=== PATIENT | male | born 1975 | race Two or more races ===

== ENCOUNTER 2018-04-26 15:27 | Emergency (ER) | payer SELFPAY ==
[~2018-04-26] VITALS: Ht 157.5 cm; Wt 79.4 kg
--- NOTE | 2018-04-26 15:47 | NUR ---
ED Nurse Note: Pt came into the Er due to laceration on the rt forearm. Pt is complaining of 8/10 pain at the site. Non radiating. Pt is A + O x4. Ambulatory. Skin warm to touch. Pt's rt arm is wrapped in cloth at the moment.
[2018-04-26 15:48] VITALS: BP 133/77
[2018-04-26] MEDS ORDERED: Tetanus/Diptheria/Pertussis Vaccine 0.5ml Syr IM ONE (16:00)
[2018-04-26] MEDS ORDERED: Lidocaine 1% 10mg/ml/Epi 0.005mg/ml 30ml vial INJ ONE (16:15)
[2018-04-26] MEDS ORDERED: Bacitracin Oint UD TOPIC ONE (16:15)
[2018-04-26] MEDS ORDERED: BACITRACIN-P28.35 GM TP (16:58)
[2018-04-26] MEDS ORDERED: CEPHALEXIN500 MG ORAL (16:58)
[2018-04-26 17:27] VITALS: BP 130/77
--- NOTE | 2018-04-26 17:29 | NUR ---
ER DISCHARGE NOTE: Patient is cleared to be discharged per ERMD, pt is aox4, on room air, with stable vital signs. pt was given dc and prescription instructions, pt was able to verbalize understanding, pt id band removed without complications. pt is able to ambulate with steady gait. pt took all belongings. Laceration site cleansed, sutured, and wrapped in kerlix.
--- NOTE | 2018-04-26 22:37 | Emergency Room Report ---
History of Present Illness General Chief Complaint: Laceration Source: Patient Present Illness HPI 42-year-old male presents to the emergency department complaining of localized laceration to the right forearm that he states he sustained from a piece of metal. Patient reports 10 out of 10 in severity pain is exacerbated upon palpation. Patient reports that he continues to have some bleeding he denies taking blood thinning medication he states he is not sure when his last tetanus vaccination was picking nose it was more than 10 years ago. Denies suspension of foreign body inside the soft tissue of the laceration.Denies numbness tingling or loss of sensation or gross motor movements of the effected extremity. Denies reliving factors at this time. Allergies: Coded Allergies: No Known Allergies (Unverified , 04/26/18) Patient History Past Medical History: see triage record Past Surgical History: none Pertinent Family History: none Reviewed Nursing Documentation: PMH: Agreed; PSxH: Agreed Nursing Documentation-PMH Past Medical History: No Stated History Review of Systems All Other Systems: negative except mentioned in HPI Physical Exam Vital Signs Date Time Temp Pulse Resp B/P (MAP) Pulse Ox O2 Delivery O2 Flow Rate FiO2 04/26/18 15:38 98.1 65 18 146/79 97 Room Air Sp02 EP Interpretation: reviewed, normal General Appearance: no apparent distress, alert, GCS 15, non-toxic Head: normocephalic, atraumatic Eyes: bilateral eye normal inspection, bilateral eye PERRL ENT: hearing grossly normal, normal voice Neck: full range of motion Respiratory: lungs clear, normal breath sounds, speaking full sentences Cardiovascular #1: regular rate, rhythm, normal capillary refill Cardiovascular #2: 2+ radial (R), 2+ radial (L) Musculoskeletal: gait/station normal, normal range of motion, non-tender Neurologic: alert, oriented x3, responsive, motor strength/tone normal, sensory intact, speech normal, grossly normal Psychiatric: judgement/insight normal Skin: normal color, no rash, warm/dry, well hydrated, laceration - 5cm right forearm laceration. Procedures Laceration/Wound Repair Laceration/Wound Repair : Consent: Verbal Wound Location: upper extremity - right forearm Wound's Depth, Shape: linear Wound Length (cm): 5 Wound Explored: clean Irrigated w/ Saline (ccs): 500 Anesthesia: Lidocaine w/ Epi Volume Anesthetic (ccs): 3 Wound Repaired With: sutures Suture Size/Type: 4:0 Number of Sutures: 9 Layer Closure?: No Sterile Dressing Applied?: Yes Splint Applied?: No Sling Applied?: No Patient Tolerated: Well Complications: None Medical Decision Making PA Attestation Dr. Mcdonald is my supervising Physician whom patient management has been discussed with. Diagnostic Impression: Primary Impression: Laceration ER Course 42-year-old male presents to the emergency department complaining of localized laceration to the right forearm that he states he sustained from a piece of metal. Patient reports 10 out of 10 in severity pain is exacerbated upon palpation. Patient reports that he continues to have some bleeding he denies taking blood thinning medication he states he is not sure when his last tetanus vaccination was picking nose it was more than 10 years ago. Denies suspension of foreign body inside the soft tissue of the laceration.Denies numbness tingling or loss of sensation or gross motor movements of the effected extremity. Denies reliving factors at this time. Ddx considered but are not limited to laceration, tendon injury, cellulitis, amputation Vital signs: are WNL, pt. is afebrile H&PE are most consistent with: Right Forearm laceration approx 5 cm in length ORDERS: none required at this time, the diagnosis is clinical ED INTERVENTIONS: -Tetanus vaccine was administered as pt. vaccination status was unknown. - The wound was copiously irrigated with normal saline, and explored for foreign body for which no FB was found. - pt. is anesthetized with 1%lidocaine w. epi. - The wound was approximated and closed using 9 interrupted 4.0 Ethilon sutures. -Bacitracin and sterile dressing is applied. Discussed with patient: That we make every effort to approximate the laceration as best as we can so that scarring will be as cosmetically pleasing as possible with our limited cosmetic skill set in the Emergency dept. Regardless of our best efforts there will be scarring after laceration repair. The extent of scarring is unknown at this time. DISCHARGE: At this time pt. is stable for d/c to home. Will provide printed patient care instructions, and any necessary prescriptions. Care plan and follow up instructions have been discussed with the patient prior to discharge. Last Vital Signs Date Time Temp Pulse Resp B/P (MAP) Pulse Ox O2 Delivery O2 Flow Rate FiO2 04/26/18 17:27 98.1 66 22 130/77 98 Room Air Disposition: HOME, SELF-CARE Condition: Stable Scripts Bacitracin/Polymyxin B Sulfate (BACITRACIN-POLYMYXIN OINTMENT) 28.35 Gm Oint...g. 1 APPLIC TP BID, #28.3 GM Prov: Aydee Hernandez 04/26/18 Cephalexin* (KEFLEX*) 500 Mg Capsule 500 MG ORAL EVERY 12 HOURS for 7 Days, #14 CAP 0 Refills Prov: Aydee Hernandez 04/26/18 Referrals: NOT CHOSEN IPA/MD,REFERRING (PCP) Patient Instructions: Laceration Care, Adult Additional Instructions: Take medications as directed. Sutures to be removed in 7-10 days Follow up with a Primary Care Provider in 3-5 days, even if your symptoms have resolved. --Please review list of primary care clinics, if you do not already have a primary care provider Return sooner to ED if new symptoms occur, or current symptoms become worse. - Please note that this Emergency Department Report was dictated using [employer] technology software, occasionally this can lead to erroneous entry secondary to interpretation by the dictation equipment. Aydee Hernandez Apr 26, 2018 22:37
== END 2018-04-26 17:30 | disposition home or self-care (01) ==
LOC: EMR 16:00
DX: S51.811A Laceration without foreign body of right forearm, initial encounter (principal); W45.8XXA Other foreign body or object entering through skin, initial encounter; Y92.89 Other specified places as the place of occurrence of the external cause; Z23 Encounter for immunization
CPT/HCPCS: 90471; 90715; 99283